=== PATIENT | male | born 1940 | race Caucasian/White ===

== ENCOUNTER 2017-01-03 19:58 | Emergency (ER) | payer OTHER ==
[2017-01-03 20:15] VITALS: RESP 16; TEMP 98.6; O2SAT 94
[2017-01-03] MEDS ORDERED: CEPHALEXIN 500MG PREPACK#4 BTL TAKEHOME ONE (21:02)
[2017-01-03] MEDS ORDERED: DOXYCYCLINE 100 MG PREPACK#2 BTL TAKEHOME ONE (21:02)
--- NOTE | 2017-01-03 21:26 | EDPHY ---
H & P Stated Complaint: R arm swelling and redness elbow to forearm since Monday HPI/ROS: CHIEF COMPLAINT: Right elbow swelling and pain HISTORY OF PRESENT ILLNESS: Patient complains of several days duration of right elbow swelling and pain. [id number] pain. This swelling and redness have increased over the past few days. Constant duration. No difficulty bending the elbow. There is some pain over the olecranon bursa of the right elbow. No numbness or tingling. No swelling of the brachium of the right upper extremity. No chest pain or shortness of breath. No fever or chills. No numbness or tingling anywhere on the arm. He was seen at an orthopedic office earlier today. They referred him to the hospital for laboratory testing. There were no medications administered. No test performed otherwise. He feels the redness has spread on the arm since then. No trauma or injury. No other associated complaints or modifying factors. REVIEW OF SYSTEMS: Ten systems reviewed and are negative unless otherwise noted in the HPI SOCIAL HISTORY: Nonsmoker. Retired from the [employer]. Lives in [place] and visiting family here in [place] FAMILY HISTORY: Noncontributory EXAMINATION General Appearance: Alert, no distress Head: normocephalic, atraumatic Eyes: Pupils equal and round, no conjunctival pallor or injection ENT, Mouth: Mucous membranes moist Neck: Normal inspection, supple, non-tender Respiratory: Lungs are clear to auscultation. No wheezing, rhonchi or crackles Cardiovascular: Regular rate and rhythm. No murmur. Pulses intact distally symmetrically radial and DP pulses. Neurological: GCS 15. A&O, nonfocal, normal gait Skin: Warm and dry. There is erythema and edema over the right olecranon bursa. No appreciable abscess. No evidence of DVT. Extremities: Tenderness isolated to the right olecranon bursa. There is no tenderness of the bony structures of the right elbow. Range of motion of the right elbow was intact and symmetric to the left without any hesitation or pain. He is using the right upper extremity freely and without hesitation both spontaneously on command. Neurovascular intact distal to the right elbow swelling. Radial pulses are symmetric. Psychiatric: Mood and affect normal DIFFERENTIAL DIAGNOSES: Including but not limited to bursitis, infected bursitis, septic joint, cellulitis, DVT, abscess MDM: 8:45 p.m. Infected right olecranon bursa. There is no evidence of septic joint. He has full passive and active range of motion of the right elbow without pain. No fever chills. Vital signs are all within normal limits. Neurovascular intact distally. I discussed the case with attending physician. He will be evaluated by Dr. Mcdonald. 9:20 p.m. Right olecranon bursitis. There is some surrounding cellulitis. There is no obvious abscess. No evidence of DVT. I discussed the case at length with Dr. Mcdonald, and he has evaluated the patient. He agrees with the plan of discharging patient home on doxycycline and Keflex. He is to follow up closely with Orthopedics for definitive care. Return here for worsening pain or swelling. Return here for any difficulty flexing the elbow. Return here for any fever chills. The patient's spouse are comfortable this plan. First dose of medication administered here. Prescriptions provided for the tomorrow. SUPERVISION: Shared visit with Dr. Mcdonald He has personally examine the patient Source: Patient, Family Exam Limitations: No limitations - Personal History Current Tetanus/Diphtheria Vaccine: Yes Tetanus Vaccine Date: 2011 - Medical/Surgical History Hx Asthma: No Hx Chronic Respiratory Disease: No Hx Diabetes: No Hx Cardiac Disease: Yes Hx Renal Disease: No Hx Cirrhosis: No Hx Alcoholism: No Hx HIV/AIDS: No Hx Splenectomy or Spleen Trauma: No Other PMH: afib, hi cholesterol, GERD, hypothyroidism, bladder CA in remission, sepsis. PSH: bilateral TKRs, R rotator cuff repair, bladder tumor resection, inguinal hernia repairs - Social History Smoking Status: Former smoker Constitutional: Initial Vital Signs Temperature (C) 98.6 F 01/03/17 20:09 Heart Rate 55 L 01/03/17 20:09 Respiratory Rate 16 01/03/17 20:09 Blood Pressure 141/64 H 01/03/17 20:09 O2 Sat (%) 94 01/03/17 20:09 O2 Delivery Mode Room Air Allergies/Adverse Reactions: clarithromycin Allergy (Verified 01/03/17 20:09) Home Medications: Medication Instructions Recorded Cephalexin [Keflex (*)] 500 mg PO TID #42 cap 01/03/17 Digoxin 01/03/17 Doxycycline Hyclate 100 mg PO BID #28 tab 01/03/17 Lipitor 01/03/17 Multi-Day Vitamins 01/03/17 Nexium 01/03/17 Nsaids 01/03/17 Potassium 01/03/17 Sotalol 01/03/17 Synthroid 100 mcg (*) 01/03/17 diphenhydrAMINE 01/03/17 Medical Decision Making - Data Points Medications Given: Discontinued Medications Cephalexin (Keflex 500 Mg Prepack#4) 1 btl TAKEHOME EDNOW ONE PRN Reason: Protocol Stop: 01/03/17 21:03 Last Admin: 01/03/17 21:12 Dose: 1 btl Doxycycline Hyclate (Vibramycin 100 Mg Prepack#2) 1 btl TAKEHOME EDNOW ONE Stop: 01/03/17 21:03 Last Admin: 01/03/17 21:13 Dose: 1 btl Departure - Departure Disposition: Home, Routine, Self-Care Clinical Impression: Olecranon bursitis of right elbow Condition: Good Instructions: Elbow Bursitis (ED) Additional Instructions: 1. Medications as prescribed to completion 2. Follow up with Orthopedics tomorrow or the next day for re-evaluation 3. Return here for any worsening symptoms, fever, chills or difficulty bending the elbow Referrals: J LUIS ABDUL [Other] - As per Instructions Wilbur Portillo MD [Medical Doctor] - As per Instructions Prescriptions: Cephalexin [Keflex (*)] 500 mg PO TID #42 cap Doxycycline Hyclate 100 mg PO BID #28 tab
[2017-01-03 21:48] VITALS: BP 116/64; PULSE 51
[2017-01-05] MEDS ORDERED: PROPOFOL/EMULSION 500 MG/50 ML BOTTLE IV ONE (15:16)
[2017-01-05] MEDS ORDERED: fentaNYL 100 MCG/2 ML INJ ONE ×2 (15:17→15:24)
== END 2017-01-03 21:43 | disposition home or self-care (01) ==
DX: M70.21 Olecranon bursitis, right elbow (principal); Z85.51 Personal history of malignant neoplasm of bladder; Z87.891 Personal history of nicotine dependence
CPT/HCPCS: 99284; A4565; J2704; J3010

== ENCOUNTER 2017-01-05 12:59 | Inpatient (IN) | payer OTHER ==
[2017-01-05] MEDS ORDERED: LIDOCAINE 1% 2 ML INJ ONE (13:10)
[2017-01-05] MEDS ORDERED: LR 1,000 ML IV ONE (14:08)
[2017-01-05] MEDS ORDERED: LIDOCAINE 1% 2 ML INJ ID PRN (14:08)
[2017-01-05] MEDS ORDERED: BACITRACIN 50,000 UNITS/10 ML SYR IRR ONE ×2 (14:47)
[2017-01-05] MEDS ORDERED: BUPIVACAINE 0.5% 30 ML SDV ONE (14:47)
[2017-01-05 14:58] LABS: ANION GAP 14 mEq/L (8-16); CALCIUM 9.5 mg/dL (8.5-10.4); CARBON DIOXIDE 23 mEq/l (22-31); CHLORIDE 104 mEq/L (97-110); CREATININE 0.8 mg/dL (0.7-1.3); GLOMERULAR FILTRATION RATE > 60; GLUCOSE 91 mg/dL (70-100); POTASSIUM 4.4 mEq/L (3.5-5.2); SODIUM 141 mEq/L (134-144)
--- NOTE | 2017-01-05 15:10 | PDGENHP ---
<Jordana Meneses - Last Filed: 01/05/17 15:23> History and Physical - Chief Complaint Right elbow swelling, redness and pain - History of Present Illness Patient is a 76 year old right hand dominant male presenting with right elbow pain, swelling and infectious symptoms since 12/30/2016. He was seen in the [facility] office on 01/03/17 with just elbow swelling. He was sent for lab work and instructed to come back to the office if symptoms worsen. The patients symptoms did worsen and he went to the [facility] ER on 01/04/17 in the morning. The patient was place don two antibiotics in the ER. No aspiration was done. He returned to the office yesterday afternoon 01/04/17 and had his right elbow aspirated and sent for culture/sensitivity, gram stain, aerobic, anaerobic, fungus, cell count. Patient presents to the hospital today for surgery, Right elbow irrigation and debridement, bursectomy, excision of olecranon spur. History Information - Allergies/Home Medication List Allergies/Adverse Reactions: clarithromycin Allergy (Verified 01/03/17 20:09) Home Medications: Digoxin 01/03/17 [Last Taken 01/05/17] Lipitor 01/03/17 [Last Taken 01/04/17] Multi-Day Vitamins 01/03/17 [Last Taken 01/04/17] Nexium 01/03/17 [Last Taken 01/05/17] Nsaids 01/03/17 [Last Taken Unknown] Potassium 01/03/17 [Last Taken 01/04/17] Sotalol 01/03/17 [Last Taken 01/05/17] Synthroid 100 mcg (*) 01/03/17 [Last Taken 01/05/17] diphenhydrAMINE 01/03/17 [Last Taken 01/04/17] Zantac 75 01/05/17 [Last Taken 01/04/17] I have personally reviewed and updated: family history, medical history, social history, surgical history - Past Medical History atrial fibrillation, GERD, hyperlipidemia Additional medical history: hypothyroidism - Surgical History Reports: hernia repair, spinal surgery Additional surgical history: Bilateral TKA - Social History Smoking Status: Former smoker Review of Systems ROS: 10pt was reviewed & negative except for what was stated in HPI & below Physical Exam Physical Exam: Right elbow: olecranon bursitis with erythema surrounding the elbow. Tenderness to palpation. Normal sensation to light touch in the right upper extremity. Distal pulse present in the Right upper extremity. Temp Pulse Resp BP Pulse Ox 37.2 C 48 L 14 172/75 H 93 01/05/17 13:36 01/05/17 13:36 01/05/17 13:36 01/05/17 13:36 01/05/17 13:36 Lab Data & Imaging Review 01/05/17 14:15 Sodium 141 mEq/L (134-144) 01/05/17 14:15 Potassium 4.4 mEq/L (3.5-5.2) 01/05/17 14:15 Chloride 104 mEq/L (97-110) 01/05/17 14:15 Carbon Dioxide 23 mEq/l (22-31) 01/05/17 14:15 Anion Gap 14 mEq/L (8-16) 01/05/17 14:15 BUN 13 mg/dL (7-23) 01/05/17 14:15 Creatinine 0.8 mg/dL (0.7-1.3) 01/05/17 14:15 Estimated GFR > 60 01/05/17 14:15 Glucose 91 mg/dL (70-100) 01/05/17 14:15 Calcium 9.5 mg/dL (8.5-10.4) 01/05/17 14:15 Visualized and Interpreted imaging results: Yes Assessment & Plan Assessment: Right elbow septic olecranon bursitis Plan: Right elbow irrigation and debridement, bursectomy, excision of olecranon spur <Wilbur Portillo R - Last Filed: 01/05/17 17:08> Physical Exam Temp Pulse Resp BP Pulse Ox 37.2 C 48 L 14 172/75 H 93 01/05/17 13:36 01/05/17 15:13 01/05/17 15:13 01/05/17 15:13 01/05/17 15:13 Lab Data & Imaging Review 01/05/17 14:15 Sodium 141 mEq/L (134-144) 01/05/17 14:15 Potassium 4.4 mEq/L (3.5-5.2) 01/05/17 14:15 Chloride 104 mEq/L (97-110) 01/05/17 14:15 Carbon Dioxide 23 mEq/l (22-31) 01/05/17 14:15 Anion Gap 14 mEq/L (8-16) 01/05/17 14:15 BUN 13 mg/dL (7-23) 01/05/17 14:15 Creatinine 0.8 mg/dL (0.7-1.3) 01/05/17 14:15 Estimated GFR > 60 01/05/17 14:15 Glucose 91 mg/dL (70-100) 01/05/17 14:15 Calcium 9.5 mg/dL (8.5-10.4) 01/05/17 14:15 Pre-op CBC notable for serum WBC count 14K+, ESR 94 and CRP 82.
[2017-01-05] MEDS ORDERED: MIDAZOLAM 2 MG/2 ML VIAL IVP ONE (15:12)
--- NOTE | 2017-01-05 15:13 | PDANEPAE ---
ANE History of Present Illness here for elbow I and D ANE Past Medical History - Cardiovascular History Hx Hypertension: No Hx Arrhythmias: Yes Hx Chest Pain: No Hx Coronary Artery / Peripheral Vascular Disease: No Hx CHF / Valvular Disease: No Hx Palpitations: Yes - Pulmonary History Hx Oxygen in Use at Home: No Hx Sleep Apnea: No Sleep Apnea Screening Result - Last Documented: Negative - Neurologic History Hx Cerebrovascular Accident: No Hx Seizures: No Hx Dementia: No - Endocrine History Hx Diabetes: No - Renal History Hx Renal Disorders: No - Liver History Hx Hepatic Disorders: No - Neurological & Psychiatric Hx Hx Neurological and Psychiatric Disorders: No - Cancer History Hx Cancer: Yes Cancer History Comment: bladder - Congenital Disorder History Hx Congenital Disorders: No - GI History Hx Gastrointestinal Disorders: Yes Gastrointestinal History Comment: GERD - Surgical History Prior Surgeries: Bilat knees, appendix, rotator cuff R, sqn CA removal, TURP, BCG ANE Review of Systems - Exercise capacity METS (RN): 4 METS - Pacemaker Pacemaker Mode: none ANE Patient History - Allergies Allergies/Adverse Reactions: clarithromycin Allergy (Verified 01/03/17 20:09) - Home Medications Home medications: home medication list seen and reviewed Home Medications: Digoxin 01/03/17 [Last Taken 01/05/17] Lipitor 01/03/17 [Last Taken 01/04/17] Multi-Day Vitamins 01/03/17 [Last Taken 01/04/17] Nexium 01/03/17 [Last Taken 01/05/17] Nsaids 01/03/17 [Last Taken Unknown] Potassium 01/03/17 [Last Taken 01/04/17] Sotalol 01/03/17 [Last Taken 01/05/17] Synthroid 100 mcg (*) 01/03/17 [Last Taken 01/05/17] diphenhydrAMINE 01/03/17 [Last Taken 01/04/17] Zantac 75 01/05/17 [Last Taken 01/04/17] - NPO status NPO Status: no food or drink >8 hours NPO Since - Liquids (Date): 01/05/17 NPO Since - Liquids (Time): 07:00 NPO Since - Solids (Date): 01/04/17 NPO Since - Solids (Time): 19:00 - Smoking Hx Smoking Status: Former smoker ANE Labs/Vital Signs - Labs Result Diagrams: 01/05/17 14:15 - Vital Signs Blood Pressure: 172/75 Heart Rate: 48 Respiratory Rate: 14 O2 Sat (%): 93 Height: 172.72 cm Weight: 73.482 kg ANE Physical Exam - Airway Neck exam: FROM Mallampati Score: Class 1 Mouth exam: normal dental/mouth exam - Pulmonary Pulmonary: no respiratory distress - Cardiovascular Cardiovascular: regular rate and rhythym - ASA Status ASA Status: II ANE Anesthesia Plan Anesthesia Plan: general endotracheal anesthesia
[2017-01-05] MEDS ORDERED: NALOXONE HCL 0.4 MG/ML INJ IVP PRN (16:05)
[2017-01-05] MEDS ORDERED: OXYCODONE/APAP 5/325 TAB PO PRN (16:05)
[2017-01-05] MEDS ORDERED: HYDROCODONE/APAP 5/325 TAB PO PRN (16:05)
[2017-01-05] MEDS ORDERED: DIPHENOXYLATE/ATROPINE LOMOTIL 1 TAB PO PRN (16:52)
[2017-01-05] MEDS ORDERED: ONDANSETRON DISINTEGRATING 4 MG TAB PO PRN (16:52)
[2017-01-05] MEDS ORDERED: diphenhydrAMINE 25 MG CAP PO PRN (16:52)
[2017-01-05] MEDS ORDERED: ONDANSETRON 4 MG/2 ML VIAL IVP PRN (16:52)
--- NOTE | 2017-01-05 17:02 | POSTANESTH ---
Post Anesthetic Evaluation Cardiovascular Status: Normal, Stable Respiratory Status: Normal, Stable Level of Consciousness/Mental Status: Can Participate in Eval Pain Control: Adequate, Prn Tx Ordered Nausea/Vomiting Control: Adequate, Prn Tx Ordered Complications Possibly Related to Anesthesia: None Noted
[2017-01-05] MEDS ORDERED: fentaNYL 100 MCG/2 ML INJ ONE (17:08)
[2017-01-05] MEDS: fentaNYL 100 MCG/2 ML INJ IVP PRN ×2 (17:13→17:29)
[2017-01-05] MEDS ORDERED: HYDROmorphONE/DILAUDID 1 MG/ML SYR ONE (17:28)
[2017-01-05] MEDS: HYDROmorphONE/DILAUDID 1 MG/ML SYR IVP PRN ×3 (17:30→18:29)
[2017-01-05] MEDS ORDERED: OXYCODONE/APAP 5/325 TAB ONE (18:30)
[2017-01-05] MEDS: ACETAMINOPHEN 325 MG TAB PO SCH ×2 (20:56→21:43)
[2017-01-05] MEDS: FAMOTIDINE 20 MG TAB PO SCH (21:02)
[2017-01-05] MEDS: oxyCODONE IR 5 MG TAB PO PRN (21:02)
[2017-01-05] MEDS: ceFAZolin 2 GM/DEXTROSE 100 ML IV SCH (21:02)
[2017-01-05] MEDS: NS 1,000 ML IV SCH (21:02)
[2017-01-05] MEDS: SOTALOL HCL 80 MG TAB PO SCH (21:42)
[2017-01-06] MEDS: oxyCODONE IR 5 MG TAB PO PRN ×5 (03:19→21:23)
[2017-01-06] MEDS: ceFAZolin 2 GM/DEXTROSE 100 ML IV SCH ×3 (05:23→21:22)
[2017-01-06] MEDS: LEVOTHYROXINE 100 MCG TAB PO SCH (05:23)
[2017-01-06] MEDS: ACETAMINOPHEN 325 MG TAB PO SCH ×3 (05:24→18:33)
--- NOTE | 2017-01-06 05:24 | GOP ---
[f rep st] OPERATIVE REPORT DATE OF OPERATION: 01/05/2017 SURGEON: Wilbur Portillo MD CHECK EXAMINER: RENETTA Morales STUDENT: RENETTA Basurot student. ANESTHESIA: General. ANESTHESIOLOGIST: Dr. Springer. PREOPERATIVE DIAGNOSIS: Septic left elbow, olecranon bursitis. POSTOPERATIVE DIAGNOSIS: 1. Possible left elbow septic bursitis. 2. Left olecranon exostosis. PROCEDURE PERFORMED: 1. Left elbow incision, irrigation, debridement, and drainage with olecranon bursectomy. 2. Left olecranon partial excision of bone with osteophyte resection. FINDINGS: Left forearm edema, erythema, calor overall concerning for cellulitis. The olecranon bursal region was notable for fluid collection and thickening with significant edema. There was a small punctate area of chronic appearing scab. After incision, there was notable fluid in the olecranon bursa , though this was relatively clear appearing and did not appear grossly purulent. There was abundant bursitis. There was no malodor or other obvious signs of infection grossly. There was a palpable posterior osteophyte off the tip of the olecranon that was visible on preoperative radiographs, as well as directly palpable. SPECIMENS: Swab, bursal fluid, bursal tissue and olecranon bone was sent for culture and sensitivity. Please note that 2 g IV cefazolin was held until after all cultures were obtained and then this was provided by the anesthesia service. ESTIMATED BLOOD LOSS: Minimal. CLINICAL INDICATION: This is a 76-year-old male who was taken to the operating room today for worsening left elbow and forearm swelling, edema and erythema concerning for worsening cellulitis in the setting of an erythematous, swollen and tender olecranon bursitis. The patient was seen in the [facility] Emergency Department and was placed on antibiotics including p.o. antibiotics (cephalexin and doxycycline) as well as IV cefazolin. Unfortunately, this was prescribed and the patient received antibiotics prior to any kind of aspiration of the olecranon bursa. Preoperative markers including elevated white count, ESR and CRP as obtained by me in the outpatient clinic setting were all consistent with infection with elevated results. Due to the above, the patient was educated regarding his findings and treatment options and agreed to proceed with above- listed surgery. All his questions were answered prior to surgery. He provided a signed and a witnessed informed consent, which was placed in his chart. Please see history and physical for additional information. DESCRIPTION OF PROCEDURE: The patient was identified in the preoperative holding area, and his right elbow was signed and designated as the operative site. The patient was confirmed in bilateral lower extremity HARVINDER hose and SCDs. He was held on any antibiotics prior to surgery for appropriate cultures. The patient was taken back to the operating room, placed supine on the OR table, and general anesthesia was obtained. He was then turned to the lateral decubitus position with a dowell bag and an axillary roll on the left side. Left upper extremity was forward flexed onto a well-padded arm board. Right upper extremity was wrapped proximally with cast padding and a nonsterile tourniquet, and then prepped and draped over a standard upper extremity positioning post. [place] exsanguination was used to inflate the tourniquet to 250 mL mmHg. A curvilinear posterolateral approach to the olecranon bursa and olecranon was utilized. Full-thickness dermal incision was made with a #15 blade over a length of approximately 5 cm. Full-thickness dermal incision was made, and obvious fluid was encountered. This was relatively benign-appearing without any significant purulence. However, swabs were used to culture the area, as well as cultures including bursal tissues, and inflamed tissues were removed within the bursal zone and sent for tissue culture. Fluid was also captured with a syringe and sent for culture. Further debridement was then performed with removal of all the olecranon bursa, particularly the inflamed-appearing tissues. Once a complete bursectomy was performed, the posterior aspect of the olecranon was palpated. There was an obvious raised area, consistent with the preoperative radiographs; i.e., a relatively large posterior spur. Using subperiosteal dissection this posterior osteophyte was accessed and defined, and confirmed with the C-arm. Once this was confirmed to be the appropriate bony portion of the olecranon, a rongeur was utilized in order to carefully elevate and remove the osteophyte from the posterior olecranon. Once the tip was clear of this bony protuberance, the area was carefully smoothed with a small rasp. Once this was completed, the olecranon bursa was copiously irrigated with sterile saline with bacitracin including 3 L of cysto tubing irrigation. Once all work was completed, a small 1/8 inch drain was placed out through a lateral stab incision along the lateral aspect of the elbow. This was sewn into place. Bulb syringe suction was applied. The wound was closed in layers. The deep layer was closed with multiple 2-0 Monocryl sutures. The skin was closed with multiple 3-0 Prolene vertical mattress sutures. Sterile postoperative surgical dressings were applied. The left upper extremity was placed in a long-arm posterior splint and sling. Please note that the tourniquet was elevated with gravity exsanguination prior to incision and was deflated prior to closure of the skin. Hemostasis was confirmed. TOURNIQUET TIME: 24 minutes at 250 mmHg. DRAINS: One bulb suction drain was sewn into place. IMPLANTS: None. COMPLICATIONS: None. DISPOSITION: The patient was extubated and transferred to the PACU in stable condition. /[id number]/MODL and [id number]/MODL. MTDD
[2017-01-06] MEDS: SOTALOL HCL 80 MG TAB PO SCH ×2 (08:32→20:34)
[2017-01-06] MEDS: ASPIRIN 325 MG TAB PO SCH (08:32)
[2017-01-06] MEDS: DIGOXIN 250 MCG TAB PO SCH (08:33)
[2017-01-06] MEDS: FAMOTIDINE 20 MG TAB PO SCH ×2 (08:33→20:33)
--- NOTE | 2017-01-06 10:39 | SOAPPROG ---
SOAP Progress Note Assessment/Plan: Assessment: POD #1 right elbow I&D, bursectomy and removal of olecranon spur Plan: Continue NWB RUE Drain will be removed later today Splint to stay in place until later today F/U final cultures of right elbow Pain medicine prn Continue IV antibiotics Ortho to follow D/C planning for later today 01/06/17 10:36 Objective: Vital Signs Temp Pulse Resp BP Pulse Ox 36.9 C 51 L 16 135/63 H 97 01/06/17 07:42 01/06/17 08:33 01/06/17 07:42 01/06/17 08:32 01/06/17 07:42 Microbiology 01/05/17 14:36 Gram Stain - Final Elbow - Tissue 01/05/17 14:36 Gram Stain - Final Elbow - Tissue 01/05/17 14:36 Gram Stain - Final Elbow - Tissue 01/05/17 14:36 Gram Stain - Final Elbow - Eswab 01/05/17 14:36 Mycobacterial Smear (PRESTON) - Final Elbow - Eswab Mycobacterial Culture - Final Laboratory Results 01/05/17 14:15 01/05/17 01/06/17 01/07/17 05:59 05:59 05:59 Intake Total 3250 Output Total 1535 355 Balance 1715 -355 Physical exam of the Right upper extremity: Well fitted splint in place. Drain in place with current output less then 5cc. Output over night: 50cc total. Normal sensation to light touch RUE. Pt able to move all 5 fingers. ICD10 Worksheet Patient Problems: Problems Problem Status Onset Septic olecranon bursitis of right elbow Acute - ICD10 Problem Qualifiers (1) Septic olecranon bursitis of right elbow
--- NOTE | 2017-01-06 12:04 | SOAPPROG ---
SOAP Progress Note Assessment/Plan: Assessment: R elbow septic olecranon bursitis, improving clinically and rapidly POD 1 s/p I&D and IV cefazolin. Cultures currently negative. Plan: Dsg changed, drain d/c'd. Cont splint and sling with NWB RUE to protect surgical site. Ice/elevation, po analgesics prn. Med consult LIZEBTH. Continue IV cefazolin while in-pt, though once cleared medically re: afib hx, htn/ovidio, he will proceed with PO abx as already Rx'd by ER, including doxy and ceph. He will return to [place], [place] and f/u with his local orthopaedic surgeon in ~10 days for suture removal and wound check. He will request all med records, though I've provided him with notes today, including op report. As fail-safe, he has a f/u appt with me on 01.16.17, though he states he will be in [place] at that time. 01/06/17 12:05 01/06/17 12:10 Subjective: Denies any significant pain, notes hand/wrist swelling and redness improved o/ n. No JENNIFER per RNs. Med consult pending. Objective: Vital Signs Temp Pulse Resp BP Pulse Ox 37.2 C 45 L 14 135/70 H 90 L 01/06/17 11:42 01/06/17 11:42 01/06/17 11:42 01/06/17 11:42 01/06/17 11:42 Microbiology 01/05/17 14:36 Gram Stain - Final Elbow - Tissue 01/05/17 14:36 Gram Stain - Final Elbow - Eswab 01/05/17 14:36 Gram Stain - Final Elbow - Tissue 01/05/17 14:36 Gram Stain - Final Elbow - Tissue 01/05/17 14:36 Mycobacterial Smear (PRESTON) - Final Elbow - Eswab Mycobacterial Culture - Final Laboratory Results 01/05/17 14:15 01/05/17 01/06/17 01/07/17 05:59 05:59 05:59 Intake Total 3250 Output Total 1535 355 Balance 1715 -355 Afeb since admit. VS notable for HTN, ovidio, no afib. R elbow nicely decompressed, no further f/c. Comp's soft, no crepitation or sub-Q gas, markedly improved R FA edema, no further cellulitis. DNVI BUEs. Drain - scant < 5cc SS fluid, no purulence, since 6am; 50cc since surgery. MICRO - all cultures remain negative to date, however, he received abx in ER w/ o any prior cultures obtained, therefore culture reliability/validity compromised. ICD10 Worksheet Patient Problems: Problems Problem Status Onset Septic olecranon bursitis of right elbow Acute
[2017-01-06] MEDS ORDERED: DICLOFENAC SODIUM 1% 100 GM GEL TP PRN (15:23)
[2017-01-06] MEDS ORDERED: CEPHALEXIN 500 MG CAP PO SCH (16:00)
[2017-01-06] MEDS: AZELASTINE NASAL MDI NS SCH (18:33)
[2017-01-06] MEDS: DICLOFENAC SUBMICRONIZED 35 MG PO SCH ×2 (18:35→20:33)
[2017-01-06] MEDS: ATORVASTATIN CALCIUM 20 MG TAB PO SCH (20:32)
[2017-01-06] MEDS: diphenhydrAMINE 50 MG CAP PO SCH (20:33)
[2017-01-06] MEDS: NS 1,000 ML IV SCH (20:34)
[2017-01-06] MEDS ORDERED: DOXYCYCLINE HYCLATE 100 MG CAP/TAB PO SCH (21:00)
[2017-01-06] MEDS ORDERED: NON-FORMULARY NEW DRUG (Doxycycline Hyclate [Doxycycline Hyclate] 100 MG) PO SCH (21:00)
[2017-01-06] MEDS ORDERED: NON-FORMULARY NEW DRUG (Ranitidine Hcl [Zantac 75] 75 MG) PO SCH (22:00)
--- NOTE | 2017-01-06 22:46 | GCON ---
[f rep st] CONSULTATION DATE OF CONSULTATION: 01/06/2017 REFERRING PHYSICIAN: Wilbur Portillo MD REASON FOR CONSULTATION: Right olecranon septic bursitis with concomitant cellulitis. HISTORY OF PRESENT ILLNESS: Patient is a 76-year-old male with a past medical history of atrial fib rillation, who I am asked to see in consultation for right olecranon septic bursitis and concomitant right upper extremity cellulitis. The patient describes developing right elbow pain and swelling a pproximately 1 week ago. This subsequently was associated with overlying erythema and warmth. He d id not have associated fever or chills. He was seen earlier this week by Orthopedic Surgery with fi ndings of elbow swelling with plans for continued conservative management and clinical followup. Sy mptoms worsened and he developed significant swelling in the forearm with associated erythema, promp ting his evaluation in the emergency department on 01/04/2017. At that time, findings were felt to be compatible with septic olecranon bursitis, and he was started empirically on cephalexin and doxyc ycline. Despite the oral antibiotic therapy, he did not have any improvement in his symptoms, and t herefore was admitted to the hospital. Yesterday, the patient underwent incision and drainage for s eptic olecranon bursitis, including olecranon bursectomy. Cultures obtained at the time of incision and drainage are now showing growth of Staphylococcus aureus. Susceptibility profile is currently pending and growth was too young for PVP testing. Patient feels clinically improved post incision a nd drainage. He did not note any preceding erythema over his upper arm. No problems making a fist or using his digits. He is right-hand dominant. Given the above findings, I am now asked to assist in his ongoing management. PAST MEDICAL HISTORY: Atrial fibrillation, GERD, hypothyroidism, hypercholesterolemia. PAST SURGICAL HISTORY: As above, shoulder surgery, bilateral knee replacement. CURRENT MEDICATIONS: Cefazolin 2 g IV q.8 hours; Lipitor 20 mg p.o. q.h.s.; aspirin 325 mg p.o. andrés ly; Astelin 1 spray each naris daily; digoxin 250 mcg orally daily; Lomotil as needed for loose stoo l; Pepcid 20 mg p.o. b.i.d.; doxycycline 100 mg p.o. b.i.d.; Synthroid 100 mcg p.o. daily; diclofena c 35 mg p.o. t.i.d.; sotalol 80 mg p.o. b.i.d. ALLERGIES: Clarithromycin associated with rash. SOCIAL HISTORY: Patient does not smoke. Drinks 3-4 glasses of wine daily. No drug use history. Ravi dumont typically lives in [place] and is visiting [place]. FAMILY HISTORY: Noncontributory to current presentation. REVIEW OF SYSTEMS: Outside that noted in the HPI, remainder of 10-system review is unremarkable. PHYSICAL EXAMINATION: VITAL SIGNS: Temperature 36.8, heart rate 44, respiratory rate 18, blood pre ssure 153/74, oxygen saturation 95% on 2 L. GENERAL: Patient is well nourished, well developed, in no acute distress. He appears nontoxic. HEENT: There is no scleral icterus, conjunctival injecti on, or conjunctival petechiae. The oropharynx clear without lesions. Dentition is in fair repair. There is no nasal discharge. There is no tenderness over the frontal, maxillary, or mastoid area. NECK: Supple without lymphadenopathy or palpable thyromegaly. CHEST: Clear to auscultation bilat erally without adventitious sounds. Respiratory effort is normal. CARDIOVASCULAR: Is bradycardic without murmurs, gallops, or rubs. ABDOMEN: Soft, nontender, nondistended. There is no palpable o rganomegaly. Bowel sounds are present. MUSCULOSKELETAL: Right olecranon region shows an erythema overlying the olecranon with some warmth, induration, and tenderness; erythema does not extend into forearm, although there is residual edema present. Patient has full range of motion of his digits. There is no palpable fluctuance. LYMPHATICS: No cervical or supraclavicular nodes. No lymphangit is in right upper extremity. SKIN: See musculoskeletal; there are no stigmata of endocarditis. Th e skin is warm and dry to touch. NEUROLOGIC: Patient is alert and interacts appropriately with the examiner. Cranial nerves 2-12 are grossly intact. Muscle tone and bulk are normal. LABORATORY DATA: Serum creatinine 0.8, synovial fluid, showing 310 white blood cells with 98% neutr ophils. Bursal cultures are showing growth of Staphylococcus aureus with susceptibility profile pen ding. IMPRESSION: Right-sided septic olecranon bursitis with associated cellulitis due to Staphylococcus aureus: Clinically improved post incision and drainage and with antibiotic therapy. Given improvem ent with cefazolin, suspect isolate will be methicillin-sensitive Staphylococcus aureus. Will maria c nue cefazolin in the interim. Based on clinical findings, think he likely will be able to transitio n to oral antibiotics to complete therapy, but this is premature at this point in his clinical cours e. RECOMMENDATIONS: 1. Agree with cefazolin 2 g IV q.8 hours. 2. Discontinue doxycycline. 3. Await susceptibility profile of Staphylococcus aureus. 4. Further decision making based on clinical findings and course over time with goal of transitioni ng to oral antibiotic therapy in next 24-48 hours. Thank you for this consultation. We will continue to follow patient with you. /[id number]/MODL
--- NOTE | 2017-01-06 23:50 | GCON ---
[f rep st] CONSULTATION HOSPITALIST CONSULTATION DATE OF CONSULTATION: 01/06/2017 REFERRING PHYSICIAN: Wilbur Protillo MD REASON FOR CONSULTATION: Evaluation of atrial fibrillation. HISTORY OF PRESENT ILLNESS: This is a 76-year-old male visiting from [place], presented to the hosp ital with a right elbow septic olecranon bursitis. Is currently postoperative day 1, I and D. The patient does have a history of atrial fibrillation, which he tells me typically acts up after surger ies. His resting heart rate is typically in the 40s, which has been consistent during this hospital . He denies any chest pain, shortness of breath, palpitations, or lightheadedness/syncope. At the time of my exam, the patient states he feels well and would like to go home. He is under the care of a side show entertainer back home. He has been on warfarin in the past, but has been off it for jonathan e time since he has been in sinus rhythm. PAST MEDICAL HISTORY: 1. Paroxysmal atrial fibrillation. 2. Mild dyslipidemia. 3. Bladder cancer. 4. GERD. 5. Hypothyroidism. PAST SURGICAL HISTORY: 1. Bilateral total knee arthroplasties. 2. Right shoulder rotator cuff repair. 3. Appendectomy. 4. Squamous cell carcinoma excision on the chest. HOME MEDICATIONS: Reviewed; refer to [facility] for details. ALLERGIES: Clarithromycin. SOCIAL HISTORY: Once again, the patient is visiting from [place] and plans on driving home with his family. He is a former smoker. He denies any alcohol or illicit drug use. FAMILY HISTORY: Reviewed and noncontributory. REVIEW OF SYSTEMS: A comprehensive 10-point review of systems was done and is negative, except for as mentioned in the HPI. PHYSICAL EXAMINATION: VITAL SIGNS: Blood pressure 135/70, pulse 45 up to 51, respiratory rate 14, O2 sat 90% on room air, temperature afebrile. GENERAL: No acute distress. HEAD: Normocephalic, a traumatic. EYES: PERRLA. Sclerae anicteric. MOUTH: Moist mucous membranes. NECK: Supple. No lymphadenopathy. CARDIOVASCULAR: S1, S2. Mildly bradycardic, but asymptomatic. There is no JVD. There is no lower extremity edema. PULMONARY: Lungs are clear. No wheezes, rales, or rhonchi. N o increased respiratory effort. ABDOMEN: Soft, nontender, nondistended. No guarding or rebound te nderness. Normoactive bowel sounds. EXTREMITIES: No clubbing or cyanosis. NEURO: Cranial nerves 2-12 grossly intact. No focal motor or sensory deficits. DIAGNOSTICS: Sodium 141, potassium 4.4, chloride 104, CO2 is 23, BUN 13, creatinine 0.8, glucose 91 . Those labs were done 01/05/2017. ASSESSMENT AND PLAN: This is a 76-year-old male, postoperative day 1, I and D for right septic elbo w olecranon bursitis, whom I have been asked to see due to atrial fibrillation. At this juncture the patient appears to be appropriate for discharge from the hospital. I did discu ss anticoagulation with the patient, which he would like to defer at this time. He says that is not unusual for him to have bouts of atrial fibrillation while in the hospital. During the time of my exam, he actually seems to be in sinus rhythm. He plans to follow up with his side show entertainer and [facility] provider upon return home. He can be discharged from the hospital and should proceed with recommendations from the orthopedic surgeon, which included suture removal in 10 days and oral antib iotics as directed by Dr. Portillo, which include doxycycline and cephalosporin. /[id number]/MODL
[2017-01-07] MEDS: ACETAMINOPHEN 325 MG TAB PO SCH ×5 (01:03→23:32)
[2017-01-07] MEDS: LEVOTHYROXINE 100 MCG TAB PO SCH (05:13)
[2017-01-07] MEDS: ceFAZolin 2 GM/DEXTROSE 100 ML IV SCH ×3 (05:13→21:34)
[2017-01-07] MEDS ORDERED: FLUTICASONE NASAL 120 SPRAYS/16 GM MDI EACHNARE PRN (09:00)
[2017-01-07] MEDS: PANTOPRAZOLE SODIUM 40 MG TAB PO SCH (09:29)
[2017-01-07] MEDS: SOTALOL HCL 80 MG TAB PO SCH ×2 (09:29→20:07)
[2017-01-07] MEDS: ASPIRIN 325 MG TAB PO SCH (09:29)
[2017-01-07] MEDS: FAMOTIDINE 20 MG TAB PO SCH ×2 (09:31→20:06)
[2017-01-07] MEDS: DIGOXIN 250 MCG TAB PO SCH (09:32)
[2017-01-07] MEDS: DICLOFENAC SUBMICRONIZED 35 MG PO SCH ×3 (09:33→21:34)
--- NOTE | 2017-01-07 09:52 | CPEKG ---
Heart Rate: 45 RR Interval: 1333 P-R Interval: 136 QRSD Interval: 80 QT Interval: 452 QTC Interval: 391 P Sandy: 62 QRS Sandy: -3 T Wave Sandy: 29 EKG Severity - OTHERWISE NORMAL ECG - EKG Impression: SINUS BRADYCARDIA EKG Impression: Possible left atrial abnormality Electronically Signed By: Victor M Bryant 08-Jan-2017 07:45:28
--- NOTE | 2017-01-07 13:59 | SOAPPROG ---
MICHAEL Progress Note Assessment/Plan: Assessment: Pt. is POD#3, Right elbow I and D with bursectomy, due to a septic olecranon bursitis. Pt. improving with IV Cefazolin. Awaiting sensitivity results from culture to transition pt. to oral antibiotics and discharge pt. home. Plan:Continue NWB RUE Splint to remain in place Await Sensitivity results PRN pain meds Continue IV Cefazolin until further notification from ID Ortho to Follow Subjective: Pt. feeling much better- denies fever, sweats, chills, NAPIER. No CP, SOB, calf pain or swelling. Some soreness in the right elbow, but much improved. Objective:Pt. with right elbow redness, warmth and tender to light palpation over olecranon. Incisions and sutures intact with no discharge or bleeding. Pt. states that it is looking much better. Some mild edema into the forearm, but no redness, warmth or streaking. Calves NTTP, negative Ar's, no swelling. Pt. is DNVI bilaterally. 01/07/17 13:52 Objective: Vital Signs Temp Pulse Resp BP Pulse Ox 37.4 C 53 L 17 117/73 93 01/07/17 07:55 01/07/17 09:32 01/07/17 07:55 01/07/17 09:29 01/07/17 07:55 Microbiology 01/05/17 14:36 Gram Stain - Final Elbow - Eswab 01/05/17 14:36 Mycobacterial Smear (PRESTON) - Final Elbow - Eswab Mycobacterial Culture - Final 01/05/17 14:36 Gram Stain - Final Elbow - Tissue 01/05/17 14:36 Gram Stain - Final Elbow - Tissue 01/05/17 14:36 Gram Stain - Final Elbow - Tissue 01/05/17 14:36 Mycobacterial Smear (PRESTON) - Final Elbow - Tissue 01/05/17 14:36 Mycobacterial Smear (PRESTON) - Final Elbow - Tissue 01/05/17 14:36 Mycobacterial Smear (PRESTON) - Final Elbow - Tissue Laboratory Results 01/05/17 14:15 01/06/17 01/07/17 01/08/17 05:59 05:59 05:59 Intake Total 3250 700 Output Total 7636 0720 Balance 1715 -874 ICD10 Worksheet Patient Problems: Problems Problem Status Onset Septic olecranon bursitis of right elbow Acute
--- NOTE | 2017-01-07 15:13 | PCMIDPN ---
Assessment/Plan: Assessment/Plan: * Right olecranon septic bursitis/upper extremity cellulitis due to MSSA: Clinically improved post incision and drainage. Will continue IV cefazolin for another 24 hours. Will decide tomorrow if patient can transition to oral doxycycline versus range for 2-3 doses of IV ceftriaxone on . Anticipate discharge tomorrow. 01/07/17 15:00 Subjective: Less right arm pain. Objective: Vital Signs Temp Pulse Resp BP Pulse Ox 37.4 C 53 L 17 117/73 93 01/07/17 07:55 01/07/17 09:32 01/07/17 07:55 01/07/17 09:29 01/07/17 07:55 Microbiology 01/05/17 14:36 Gram Stain - Final Elbow - Eswab 01/05/17 14:36 Mycobacterial Smear (PRESTON) - Final Elbow - Eswab Mycobacterial Culture - Final 01/05/17 14:36 Gram Stain - Final Elbow - Tissue 01/05/17 14:36 Gram Stain - Final Elbow - Tissue 01/05/17 14:36 Gram Stain - Final Elbow - Tissue 01/05/17 14:36 Mycobacterial Smear (PRESTON) - Final Elbow - Tissue 01/05/17 14:36 Mycobacterial Smear (PRESTON) - Final Elbow - Tissue 01/05/17 14:36 Mycobacterial Smear (PRESTON) - Final Elbow - Tissue Laboratory Results 01/05/17 14:15 01/06/17 01/07/17 01/08/17 05:59 05:59 05:59 Intake Total 3250 700 Output Total 1535 1380 Balance 1715 -680 Cefazolin # 2 Elbow cultures with MSSA. Full susceptibility profile pending. - Physical Exam General Appearance: alert, no apparent distress EENT: No scleral icterus Extremities: inflammation (Right upper extremity with erythema localized around olecranon and just superior to olecranon; no pain with range of motion of elbow ; thickening and tenderness over olecranon region present) Abdomen: non-tender, No distended ICD10 Worksheet Patient Problems: Problems Problem Status Onset Septic olecranon bursitis of right elbow Acute
[2017-01-07] MEDS: AZELASTINE NASAL MDI NS SCH (17:24)
[2017-01-07] MEDS: diphenhydrAMINE 50 MG CAP PO SCH (20:06)
[2017-01-07] MEDS: ATORVASTATIN CALCIUM 20 MG TAB PO SCH (20:06)
[2017-01-08] MEDS: ceFAZolin 2 GM/DEXTROSE 100 ML IV SCH (06:11)
[2017-01-08] MEDS: LEVOTHYROXINE 100 MCG TAB PO SCH (06:11)
[2017-01-08] MEDS: ACETAMINOPHEN 325 MG TAB PO SCH ×2 (06:27→12:24)
[2017-01-08 07:56] VITALS: BP 143/66; PULSE 42; RESP 12; TEMP 98.2
--- NOTE | 2017-01-08 09:03 | SOAPPROG ---
MICHAEL Progress Note Assessment/Plan: Assessment: Pt. is POD#4, Right elbow I and D with bursectomy, due to a septic olecranon bursitis. Pt. improving with IV Cefazolin. Will await instructions from ID to see if pt. will be managed with po antibiotics or if he will return for IV antibiotics as an outpatient. Plan:Continue NWB RUE Splint to remain in place PRN pain meds Continue IV Cefazolin until further notification from ID Ortho to Follow Anticipate discharge today. Subjective: Pt. feeling much better- denies fever, sweats, chills, NAPIER. No CP, SOB, calf pain or swelling. Some soreness in the right elbow, but much improved. Not needing tylenol for pain any longer. Objective:Pt. with mild right elbow redness over olecranon, improved from yesterday. Mild tenderness to light palpation over olecranon. Incisions and sutures intact with no discharge or bleeding. Calves NTTP, negative Ar's, no swelling. Pt. is DNVI bilaterally. 01/07/17 13:52 01/08/17 09:00 Objective: Vital Signs Temp Pulse Resp BP Pulse Ox 36.8 C 42 L 12 143/66 H 97 01/08/17 07:56 01/08/17 07:56 01/08/17 07:56 01/08/17 07:56 01/08/17 07:56 Microbiology 01/05/17 14:36 Gram Stain - Final Elbow - Eswab 01/05/17 14:36 Gram Stain - Final Elbow - Tissue 01/05/17 14:36 Gram Stain - Final Elbow - Tissue 01/05/17 14:36 Gram Stain - Final Elbow - Tissue 01/05/17 14:36 Mycobacterial Smear (PRESTON) - Final Elbow - Eswab Mycobacterial Culture - Final Laboratory Results 01/05/17 14:15 01/07/17 01/08/17 01/09/17 05:59 05:59 05:59 Intake Total 700 100 Output Total 1380 1700 600 Balance -680 -1600 -600 ICD10 Worksheet Patient Problems: Problems Problem Status Onset Septic olecranon bursitis of right elbow Acute
[2017-01-08] MEDS: SOTALOL HCL 80 MG TAB PO SCH (09:25)
[2017-01-08] MEDS: PANTOPRAZOLE SODIUM 40 MG TAB PO SCH (09:25)
[2017-01-08] MEDS: FAMOTIDINE 20 MG TAB PO SCH (09:25)
[2017-01-08] MEDS: DIGOXIN 250 MCG TAB PO SCH (09:25)
[2017-01-08] MEDS: ASPIRIN 325 MG TAB PO SCH (09:25)
[2017-01-08] MEDS: DICLOFENAC SUBMICRONIZED 35 MG PO SCH (09:26)
--- NOTE | 2017-01-08 10:34 | PCMIDPN ---
Assessment/Plan: Assessment/Plan: * Right olecranon septic bursitis/upper extremity cellulitis due to MSSA: Erythema has decreased with localization over olecranon remaining some of which is also ecchymoses postoperatively. Think can transition to oral antibiotics today to complete therapy. Isolate is susceptible to doxycycline which he has from his ER visit. Plan to continue treatment course with doxycycline. Advised him that he does not need to take cephalexin simultaneously. Will have patient follow-up in my office on 01/12/2017 at 3:00 p.m.. Side effects of doxycycline including potential for photosensitivity or esophagitis reviewed with patient. Discussed need to avoid concomitant intake of calcium. 01/08/17 10:30 Subjective: Patient with decreased arm pain. Primarily present with range of motion. Objective: Vital Signs Temp Pulse Resp BP Pulse Ox 36.8 C 42 L 12 143/66 H 97 01/08/17 07:56 01/08/17 07:56 01/08/17 07:56 01/08/17 07:56 01/08/17 07:56 Microbiology 01/05/17 14:36 Gram Stain - Final Elbow - Tissue 01/05/17 14:36 Gram Stain - Final Elbow - Tissue 01/05/17 14:36 Gram Stain - Final Elbow - Tissue 01/05/17 14:36 Gram Stain - Final Elbow - Eswab 01/05/17 14:36 Mycobacterial Smear (PRESTON) - Final Elbow - Eswab Mycobacterial Culture - Final Laboratory Results 01/05/17 14:15 01/07/17 01/08/17 01/09/17 05:59 05:59 05:59 Intake Total 700 100 Output Total 1380 1700 600 Balance -680 -1600 -600 Cefazolin # 3 Operative cultures with growth of MSSA which is tetracycline susceptible Blood cultures x2 no growth - Physical Exam General Appearance: alert, no apparent distress EENT: No scleral icterus Extremities: inflammation (Erythema localized to right olecranon with intact incision; some bursal thickening but no fluid; ecchymoses also present which extends proximally; no irritability with range of motion) Lymphatic: other (No right upper extremity lymphangitis) ICD10 Worksheet Patient Problems: Problems Problem Status Onset Septic olecranon bursitis of right elbow Acute
[2017-01-08 14:29] VITALS: O2SAT 95
--- NOTE | 2017-01-11 23:46 | GDS ---
[f rep st] DISCHARGE SUMMARY PREOPERATIVE DIAGNOSIS: Right septic olecranon bursitis. POSTOPERATIVE DIAGNOSIS: Right septic olecranon bursitis. Postop day 4 with incision and drainage. PROCEDURE PERFORMED: Incision and drainage with bursectomy of the right elbow olecranon bursa. BRIEF HISTORY: The patient was admitted to Dr. Portillo [facility] with a red, warm, painful elbow. It was determined that he had a septic olecranon bursa and was p laced on IV cefazolin. The patient was then taken to the OR where he had an incision and drainage w ith bursectomy performed. He remained on IV cefazolin as cultures and sensitivities were pending. Cultures taken in the OR were positive for Staph aureus. Patient remained on IV antibiotics until s ensitivities would return that would allow it to be safe for the patient to transition to oral medic ation. He did have a susceptible Staph infection, therefore was taken off IV antibiotics on 01/08 a nd transitioned back to oral doxycycline. HOSPITAL COURSE: The patient was admitted, placed on IV cefazolin for antibiotic measure, and taken to the operating room on 01/05/2017, whereupon he underwent an incision and drainage and right olec ranon bursectomy performed by Dr. Potrillo. There were no intraoperative complications. Postoperat abbi treatment for VTE prophylaxis included mechanical prophylaxis with HARVINDER hose placement and sequen tial compression devices. He was consulted on by Infectious Disease service. His incision appears to be healing well at the t jonathan of discharge, and his hospital stay was otherwise uneventful. DISCHARGE INSTRUCTIONS: Patient was advised to remain in his splint until followup whereupon suture s will be removed. He will either follow up in Dr. Portillo's office 10 days postop or in [facility] he happens to be back home when that time occurs. He will watch closely for signs of increasing i nfection and return immediately if anything such as increased redness, pain or swelling with a fever should occur. Otherwise he will take his doxycycline as prescribed by the Emergency Department sta rting the day of discharge. He also has an appointment to be seen 4 days after discharge with ID to ensure continued improvement. DISCHARGE MEDICATIONS: Doxycycline. The patient is also to resume his preop medications at prescri bed dosage. FOLLOWUP: The patient is scheduled to follow up with Dr. Portillo 10-14 days postoperatively or mario rayray if any additional concerns or complaints. He is encouraged to contact the office to schedule th e appointment or with any other questions. /[id number]/MODL
== END 2017-01-08 14:10 | disposition home or self-care (01) | DRG 501 ==
LOC: FSGY 12:59 → F3N 17:28 → OBSVTOIN 01-07 14:30
PROVIDERS: ADMIT Orthopaedic Surgery; ATTEND Orthopaedic Surgery
PROC: 0PBK0ZZ Excision of Right Ulna, Open Approach (ICD-10-PCS; principal; 2017-01-05 15:00)
PROC: 0MB30ZZ Excision of Right Elbow Bursa and Ligament, Open Approach (ICD-10-PCS; principal; 2017-01-05 15:00)
DX: M70.21 Olecranon bursitis, right elbow (principal); L03.113 Cellulitis of right upper limb; B95.61 Methicillin susceptible Staphylococcus aureus infection as the cause of diseases classified elsewhere; M77.8 Other enthesopathies, not elsewhere classified; I48.0 Paroxysmal atrial fibrillation; K21.9 Gastro-esophageal reflux disease without esophagitis; E78.00 Pure hypercholesterolemia, unspecified; E03.9 Hypothyroidism, unspecified; Z85.51 Personal history of malignant neoplasm of bladder; Z87.891 Personal history of nicotine dependence; Z96.652 Presence of left artificial knee joint; Z96.651 Presence of right artificial knee joint
CPT/HCPCS: J0690; J1170; J2250; J3010